=== PATIENT | female | born 1990 | race African-American/Black ===

== ENCOUNTER 2017-07-11 06:44 | Emergency (ER) | payer MEDICAID, OTHER ==
[~2017-07-11] VITALS: Ht 160 cm; Wt 68.0 kg
[~2017-07-11 06:44] MED LIST: COGENTIN; SERAQUEL; [UNRECOGNIZED DRUG - OTHER]
[2017-07-11] MEDS ORDERED: OLANZAPINE 5MG TABLET ODT PO ONE (08:45)
[2017-07-11 09:07] LABS: BASOPHILS % 0.6 % (0.0-2.0); EOSINOPHILS % 0.3 % (0.0-5.0); HEMATOCRIT. 40.3 % (36.0-48.0); HEMOGLOBIN. 13.4 g/dL (12.0-16.0); LYMPHOCYTES % 28.3 % (20.0-50.0); MEAN CORPUSCULAR HEMOGLOBIN 28.7 pg (28.0-32.0); MEAN CORPUSCULAR VOLUME 86.1 fL (81.0-99.0); MEAN PLATELET VOLUME 7.6 fl (7.4-10.4); NEUTROPHILS % 64.8 % (40.0-76.0); PLATELET 287 x1000/uL (130-400); RED BLOOD CELL COUNT 4.68 mill/uL (4.2-5.4)
[2017-07-11 09:09] LABS: CHLORIDE 112 mEq/L (98-107)
[2017-07-11 09:20] LABS: ETHANOL BLOOD < 10 mg/dL
[2017-07-11] MEDS ORDERED: QUETIAPINE FUMARATE 25MG TABLET PO SCH (10:30)
[2017-07-11] MEDS ORDERED: OLANZAPINE 10MG TABLET PO SCH ×2 (10:45→11:55)
[2017-07-11 13:26] LABS: *AMPHETAMINES SCREEN URINE NEGATIVE (NEGATIVE); *BARBITURATES SCREEN URINE NEGATIVE (NEGATIVE); *BENZODIAZEPINES SCREEN URINE NEGATIVE (NEGATIVE); *COCAINE SCREEN URINE NEGATIVE (NEGATIVE); CANNABINOID URINE SCREEN NEGATIVE (NEGATIVE); METHADONE URINE SCREEN NEGATIVE (NEGATIVE); OPIATES URINE SCREEN NEGATIVE (NEGATIVE); PHENCYCLIDINE URINE SCREEN NEGATIVE (NEGATIVE)
[2017-07-11 16:00] VITALS: BP 103/52
== END 2017-07-11 16:00 | disposition home or self-care (01) ==
LOC: ER 07:18
DX: R44.1 Visual hallucinations (principal); F31.9 Bipolar disorder, unspecified; F20.9 Schizophrenia, unspecified
CPT/HCPCS: 36415; 80048; 80305; 80307; 80329; 85025; 99284; G0482

== ENCOUNTER 2017-09-24 17:57 | Emergency (ER) | payer OTHER ==
[~2017-09-24] VITALS: Ht 160 cm; Wt 80.0 kg
[2017-09-24 18:01] VITALS: BP 103/63
== END 2017-09-24 21:15 | disposition left against medical advice (07) ==
LOC: ER 18:12
DX: M25.551 Pain in right hip (principal); Z53.21 Procedure and treatment not carried out due to patient leaving prior to being seen by health care provider

== ENCOUNTER 2019-04-29 02:51 | Emergency (ER) | payer OTHER ==
[~2019-04-29] VITALS: Ht 160 cm; Wt 66.0 kg
[2019-04-29 03:02] VITALS: BP 118/71
== END 2019-04-29 10:29 | disposition left against medical advice (07) ==
LOC: ER 02:51
DX: Z53.21 Procedure and treatment not carried out due to patient leaving prior to being seen by health care provider (principal)

== ENCOUNTER 2019-04-29 13:58 | Emergency (ER) | payer OTHER ==
[~2019-04-29] VITALS: Ht 165.1 cm; Wt 57.0 kg
[2019-04-29 14:17] VITALS: BP 124/88
== END 2019-04-29 15:35 | disposition left against medical advice (07) ==
LOC: ER 14:09
DX: R44.3 Hallucinations, unspecified (principal)
CPT/HCPCS: 99283

== ENCOUNTER 2019-06-19 18:45 | Emergency (ER) | payer OTHER ==
[~2019-06-19] VITALS: Ht 165.1 cm; Wt 61.0 kg
[2019-06-19 21:08] LABS: *BARBITURATES SCREEN URINE NEGATIVE (NEGATIVE); *BENZODIAZEPINES SCREEN URINE NEGATIVE (NEGATIVE); *COCAINE SCREEN URINE NEGATIVE (NEGATIVE); CANNABINOID URINE SCREEN NEGATIVE (NEGATIVE); METHADONE URINE SCREEN NEGATIVE (NEGATIVE); OPIATES URINE SCREEN NEGATIVE (NEGATIVE); PHENCYCLIDINE URINE SCREEN NEGATIVE (NEGATIVE)
[2019-06-19 21:14] LABS: *AMPHETAMINES SCREEN URINE PRESUMTIVE POSITIVE (NEGATIVE)
[2019-06-19 21:40] LABS: BASOPHILS % 0.8 % (0.0-2.0); HEMATOCRIT. 35.9 % (36.0-48.0); HEMOGLOBIN. 12.3 g/dL (12.0-16.0); LYMPHOCYTES % 31.4 % (20.0-50.0); MEAN CORPUSCULAR HEMOGLOBIN 29.9 pg (28.0-32.0); MEAN CORPUSCULAR VOLUME 87.4 fL (81.0-99.0); NEUTROPHILS % 53.8 % (40.0-76.0); PLATELET 311 x1000/uL (130-400); RED BLOOD CELL COUNT 4.11 mill/uL (4.2-5.4); RED CELL DISTRIBUTION WIDTH 13.2 % (11.6-14.6)
[2019-06-19 21:47] LABS: CHLORIDE 108 mEq/L (98-107)
[2019-06-19 21:51] LABS: ETHANOL BLOOD < 10 mg/dL; HCG SCREEN NEGATIVE
[2019-06-19] MEDS ORDERED: OLANZAPINE 10 MG/VIAL IM ONE (23:15)
[2019-06-20 09:30] VITALS: BP 122/82
== END 2019-06-20 10:50 | disposition home or self-care (01) ==
LOC: ER 18:45
DX: T43.621A Poisoning by amphetamines, accidental (unintentional), initial encounter (principal); Y92.89 Other specified places as the place of occurrence of the external cause; R45.851 Suicidal ideations; R44.0 Auditory hallucinations
CPT/HCPCS: 36415; 80053; 80305; 80307; 80320; 80329; 81025; 84703; 85025; 93005; 96372; 99285; J3490; 99284; G0480

== ENCOUNTER 2019-06-24 21:35 | Emergency (ER) | payer OTHER ==
[~2019-06-24] VITALS: Ht 157.5 cm; Wt 63.0 kg
[2019-06-24 23:03] LABS: BASOPHILS % 1.1 % (0.0-2.0); EOSINOPHILS % 4.5 % (0.0-5.0); HEMOGLOBIN. 13.8 g/dL (12.0-16.0); LYMPHOCYTES % 44.4 % (20.0-50.0); MEAN CORPUSCULAR HEMOGLOBIN 29.8 pg (28.0-32.0); MEAN CORPUSCULAR VOLUME 88.6 fL (81.0-99.0); MEAN PLATELET VOLUME 6.9 fl (7.4-10.4); PLATELET 326 x1000/uL (130-400); RED BLOOD CELL COUNT 4.63 mill/uL (4.2-5.4); RED CELL DISTRIBUTION WIDTH 13.2 % (11.6-14.6)
[2019-06-24 23:09] LABS: CHLORIDE 106 mEq/L (98-107)
[2019-06-24 23:13] LABS: ETHANOL BLOOD < 10 mg/dL
[2019-06-24 23:22] LABS: CLARITY URINE TURBID (CLEAR); COLOR URINE YELLOW (YELLOW); KETONES URINE NEGATIVE (NEGATIVE); LEUKOCYTE ESTERASE URINE 1+ (NEGATIVE); NITRITE URINE NEGATIVE (NEGATIVE); OCCULT BLOOD URINE 2+ (NEGATIVE); PROTEIN URINE TRACE (NEGATIVE)
[2019-06-24 23:39] LABS: *AMPHETAMINES SCREEN URINE NEGATIVE (NEGATIVE)
[2019-06-24 23:40] LABS: *BARBITURATES SCREEN URINE NEGATIVE (NEGATIVE); *BENZODIAZEPINES SCREEN URINE NEGATIVE (NEGATIVE); *COCAINE SCREEN URINE NEGATIVE (NEGATIVE); METHADONE URINE SCREEN NEGATIVE (NEGATIVE); OPIATES URINE SCREEN NEGATIVE (NEGATIVE); PHENCYCLIDINE URINE SCREEN NEGATIVE (NEGATIVE)
[2019-06-24 23:41] LABS: CANNABINOID URINE SCREEN NEGATIVE (NEGATIVE)
[2019-06-25] MEDS ORDERED: CEPHALEXIN 250MG CAPSULE PO SCH (00:30)
[2019-06-25 15:34] VITALS: BP 112/64
== END 2019-06-25 15:40 | disposition home or self-care (01) ==
LOC: ER 21:35
DX: R45.851 Suicidal ideations (principal); F31.9 Bipolar disorder, unspecified; Z79.899 Other long term (current) drug therapy
CPT/HCPCS: 36415; 80053; 80305; 80307; 80320; 80329; 81003; 81025; 85025; 99285; G0480

== ENCOUNTER 2019-07-08 23:46 | Emergency (ER) | payer OTHER ==
[~2019-07-08] VITALS: Ht 157.5 cm; Wt 66.0 kg
[2019-07-09 02:18] LABS: CLARITY URINE CLOUDY (CLEAR); COLOR URINE YELLOW (YELLOW); EOSINOPHILS % 1.1 % (0.0-5.0); HEMATOCRIT. 42.8 % (36.0-48.0); HEMOGLOBIN. 14.2 g/dL (12.0-16.0); KETONES URINE TRACE (NEGATIVE); LEUKOCYTE ESTERASE URINE 2+ (NEGATIVE); MEAN CORPUSCULAR HEMOGLOBIN 29.1 pg (28.0-32.0); MEAN CORPUSCULAR VOLUME 87.9 fL (81.0-99.0); MEAN PLATELET VOLUME 7.4 fl (7.4-10.4); MONOCYTES % 8.3 % (2.0-8.0); NEUTROPHILS % 41.6 % (40.0-76.0); NITRITE URINE NEGATIVE (NEGATIVE); OCCULT BLOOD URINE TRACE (NEGATIVE); PLATELET 260 x1000/uL (130-400); PROTEIN URINE 1+ (NEGATIVE); RED BLOOD CELL COUNT 4.87 mill/uL (4.2-5.4); RED CELL DISTRIBUTION WIDTH 13.4 % (11.6-14.6); SPECIFIC GRAVITY URINE 1.023 (1.005-1.030)
[2019-07-09 02:23] LABS: CHLORIDE 107 mEq/L (98-107)
[2019-07-09 02:27] LABS: ETHANOL BLOOD < 10 mg/dL
[2019-07-09 02:30] LABS: *AMPHETAMINES SCREEN URINE NEGATIVE (NEGATIVE); *BARBITURATES SCREEN URINE NEGATIVE (NEGATIVE); *BENZODIAZEPINES SCREEN URINE NEGATIVE (NEGATIVE); *COCAINE SCREEN URINE NEGATIVE (NEGATIVE); METHADONE URINE SCREEN NEGATIVE (NEGATIVE); OPIATES URINE SCREEN NEGATIVE (NEGATIVE)
[2019-07-09 02:31] LABS: CANNABINOID URINE SCREEN NEGATIVE (NEGATIVE); PHENCYCLIDINE URINE SCREEN NEGATIVE (NEGATIVE)
[2019-07-09] MEDS ORDERED: CEPHALEXIN 250MG CAPSULE PO SCH (03:45)
[2019-07-09 06:42] VITALS: BP 109/75
== END 2019-07-09 11:07 | disposition home or self-care (01) ==
LOC: ER 23:46
DX: R45.851 Suicidal ideations (principal); Z91.14 Patient's other noncompliance with medication regimen; Z59.0 Homelessness; F31.9 Bipolar disorder, unspecified; Z79.899 Other long term (current) drug therapy
CPT/HCPCS: 36415; 80053; 80178; 80305; 80307; 80320; 80329; 81003; 81025; 85025; 99284; G0480

== ENCOUNTER 2019-07-11 23:37 | Emergency (ER) | payer OTHER ==
[~2019-07-11] VITALS: Ht 167.6 cm; Wt 59.0 kg
[2019-07-12 04:04] LABS: CHLORIDE 110 mEq/L (98-107)
[2019-07-12 04:08] LABS: ETHANOL BLOOD < 10 mg/dL
[2019-07-12 04:14] LABS: EOSINOPHILS % 2.2 % (0.0-5.0); HEMATOCRIT. 39.7 % (36.0-48.0); HEMOGLOBIN. 13.6 g/dL (12.0-16.0); LYMPHOCYTES % 54.9 % (20.0-50.0); MEAN CORPUSCULAR VOLUME 87.8 fL (81.0-99.0); MEAN PLATELET VOLUME 7.8 fl (7.4-10.4); MONOCYTES % 7.4 % (2.0-8.0); NEUTROPHILS % 34.5 % (40.0-76.0); PLATELET 255 x1000/uL (130-400); RED BLOOD CELL COUNT 4.53 mill/uL (4.2-5.4); RED CELL DISTRIBUTION WIDTH 13.4 % (11.6-14.6)
[2019-07-12] MEDS ORDERED: IPRATROPIUM/ALBUTEROL 0.5-3(2.5)MG/3ML NEB HHN ONE (04:15)
[2019-07-12] MEDS ORDERED: QUETIAPINE FUMARATE 50MG TABLET PO ONE (05:15)
[2019-07-12] MEDS ORDERED: LITHIUM CARBONATE 150 MG CAPSULE PO ONE (05:15)
[2019-07-12 05:29] LABS: CLARITY URINE CLEAR (CLEAR); COLOR URINE YELLOW (YELLOW); KETONES URINE NEGATIVE (NEGATIVE); LEUKOCYTE ESTERASE URINE 2+ (NEGATIVE); NITRITE URINE NEGATIVE (NEGATIVE); OCCULT BLOOD URINE NEGATIVE (NEGATIVE); PH URINE 5.5 (4.5-8.0); PROTEIN URINE NEGATIVE (NEGATIVE); SPECIFIC GRAVITY URINE 1.012 (1.005-1.030)
[2019-07-12 05:39] LABS: *AMPHETAMINES SCREEN URINE NEGATIVE (NEGATIVE); *BARBITURATES SCREEN URINE NEGATIVE (NEGATIVE); *BENZODIAZEPINES SCREEN URINE NEGATIVE (NEGATIVE); *COCAINE SCREEN URINE NEGATIVE (NEGATIVE)
[2019-07-12 05:40] LABS: CANNABINOID URINE SCREEN NEGATIVE (NEGATIVE); METHADONE URINE SCREEN NEGATIVE (NEGATIVE); OPIATES URINE SCREEN NEGATIVE (NEGATIVE); PHENCYCLIDINE URINE SCREEN NEGATIVE (NEGATIVE)
[2019-07-12 06:11] VITALS: BP 110/68
== END 2019-07-12 06:12 | disposition home or self-care (01) ==
LOC: ER 23:37
DX: F25.0 Schizoaffective disorder, bipolar type (principal); R45.851 Suicidal ideations; Z76.0 Encounter for issue of repeat prescription
CPT/HCPCS: 36415; 80053; 80305; 80320; 81003; 81025; 83690; 84443; 85025; 99283; Z7610; G0480

== ENCOUNTER 2019-07-15 21:01 | Emergency (ER) | payer MEDICAID, OTHER ==
[~2019-07-15] VITALS: Ht 157.5 cm; Wt 50.0 kg
[2019-07-15] MEDS ORDERED: DIPHENHYDRAMINE 50MG/ML VIAL IM STA (21:48)
[2019-07-15] MEDS ORDERED: LORAZEPAM 2MG/ML CPJ IM STA (21:48)
[2019-07-15] MEDS ORDERED: HALOPERIDOL LACTATE 5MG/ML VIAL IM STA (21:48)
[2019-07-15 23:33] LABS: BASOPHILS % 1.1 % (0.0-2.0); EOSINOPHILS % 1.6 % (0.0-5.0); HEMATOCRIT. 41.4 % (36.0-48.0); HEMOGLOBIN. 13.8 g/dL (12.0-16.0); LYMPHOCYTES % 49.8 % (20.0-50.0); MEAN CORPUSCULAR HEMOGLOBIN 29.4 pg (28.0-32.0); MEAN CORPUSCULAR VOLUME 88.2 fL (81.0-99.0); MEAN PLATELET VOLUME 7.3 fl (7.4-10.4); MONOCYTES % 6.9 % (2.0-8.0); NEUTROPHILS % 40.6 % (40.0-76.0); PLATELET 240 x1000/uL (130-400); RED BLOOD CELL COUNT 4.69 mill/uL (4.2-5.4); RED CELL DISTRIBUTION WIDTH 13.3 % (11.6-14.6)
[2019-07-15 23:36] LABS: CHLORIDE 108 mEq/L (98-107)
[2019-07-15 23:40] LABS: HCG SCREEN NEGATIVE
[2019-07-15 23:42] LABS: ETHANOL BLOOD < 10 mg/dL
[2019-07-15 23:46] LABS: CREATINE KINASE 84 IU/L (26-192)
[2019-07-16 07:01] LABS: CLARITY URINE TURBID (CLEAR); COLOR URINE YELLOW (YELLOW); KETONES URINE NEGATIVE (NEGATIVE); LEUKOCYTE ESTERASE URINE 1+ (NEGATIVE); NITRITE URINE NEGATIVE (NEGATIVE); OCCULT BLOOD URINE NEGATIVE (NEGATIVE); PROTEIN URINE TRACE (NEGATIVE); SPECIFIC GRAVITY URINE 1.019 (1.005-1.030)
[2019-07-16 07:13] LABS: *AMPHETAMINES SCREEN URINE NEGATIVE (NEGATIVE); *BARBITURATES SCREEN URINE NEGATIVE (NEGATIVE)
[2019-07-16 07:14] LABS: *BENZODIAZEPINES SCREEN URINE NEGATIVE (NEGATIVE); *COCAINE SCREEN URINE NEGATIVE (NEGATIVE); CANNABINOID URINE SCREEN NEGATIVE (NEGATIVE); METHADONE URINE SCREEN NEGATIVE (NEGATIVE); OPIATES URINE SCREEN NEGATIVE (NEGATIVE); PHENCYCLIDINE URINE SCREEN NEGATIVE (NEGATIVE)
[2019-07-16] MEDS ORDERED: NITROFURANTOIN 100MG M/M CAPSULE PO ONE (09:00)
[2019-07-16 11:40] VITALS: BP 110/72
== END 2019-07-16 11:43 | disposition home or self-care (01) ==
LOC: ER 21:01
DX: R45.851 Suicidal ideations (principal); J45.909 Unspecified asthma, uncomplicated; F31.9 Bipolar disorder, unspecified
CPT/HCPCS: 36415; 80053; 80305; 80320; 81003; 82550; 83690; 84703; 85025; 96372; 99285; J1200; J1630; J2060; G0480

== ENCOUNTER 2019-07-16 21:31 | Emergency (ER) | payer OTHER ==
[~2019-07-16] VITALS: Ht 167.6 cm; Wt 49.0 kg
[2019-07-16 21:39] VITALS: BP 127/82
[2019-07-16] MEDS ORDERED: NAPROXEN 250MG TABLET PO ONE (22:15)
== END 2019-07-17 07:00 | disposition home or self-care (01) ==
LOC: ER 21:31
DX: M54.5 Low back pain (principal); J45.909 Unspecified asthma, uncomplicated; Z59.0 Homelessness
CPT/HCPCS: 99283

== ENCOUNTER 2019-07-17 21:53 | Emergency (ER) | payer OTHER ==
[~2019-07-17] VITALS: Ht 162.6 cm; Wt 65.0 kg
[2019-07-17] MEDS ORDERED: IPRATROPIUM BROMIDE (0.02%) 0.5MG/2.5ML NEB HHN STA (23:52)
[2019-07-17] MEDS ORDERED: PREDNISONE 20MG TABLET PO STA (23:52)
[2019-07-17] MEDS ORDERED: ALBUTEROL (0.083%) 2.5MG/3ML NEB HHN STA (23:52)
[2019-07-18 02:30] VITALS: BP 124/84
== END 2019-07-18 02:57 | disposition home or self-care (01) ==
LOC: ER 21:53
DX: J45.901 Unspecified asthma with (acute) exacerbation (principal); F31.9 Bipolar disorder, unspecified; Z79.899 Other long term (current) drug therapy
CPT/HCPCS: 71045; 94640; 99283; J7512; Z7610

== ENCOUNTER 2019-08-10 02:27 | Emergency (ER) | payer OTHER ==
[~2019-08-10] VITALS: Ht 157.5 cm; Wt 61.2 kg
[2019-08-10 02:30] VITALS: BP 124/81
== END 2019-08-10 04:32 | disposition home or self-care (01) ==
LOC: ER 02:27
DX: R05 Cough (principal); R07.89 Other chest pain; R00.1 Bradycardia, unspecified; J45.909 Unspecified asthma, uncomplicated; F31.9 Bipolar disorder, unspecified
CPT/HCPCS: 71045; 81025; 93005; 99283